=== PATIENT | female | born 1955 | race Caucasian/White ===

== ENCOUNTER 2017-07-13 17:06 | Inpatient (IN) | payer MEDICARE, MEDICAID ==
[~2017-07-13] VITALS: Ht 154.9 cm; Wt 106.2 kg
[~2017-07-13 17:06] MED LIST: ASPI-496 PO; ATOR40TA78 PO; GLIM1TAB2 PO; ISOS40TA11 PO; LOSA100T2 PO; METF500T9 PO; METO25TA2 PO; NIFE10CA2 PO; NITR0.4T28 SL; OXYC10TA6 PO; PRO AIR INH
[2017-07-13 18:34] VITALS: BP 137/90
[2017-07-13] MEDS ORDERED: BACITRACIN 50,000 UNIT ONE (20:35)
[2017-07-13] MEDS ORDERED: BUPIVACAINE/PF 0.5% ONE (20:36)
[2017-07-13] MEDS ORDERED: FENTANYL PF 500 MCG/10ML ONE (20:40)
[2017-07-13] MEDS ORDERED: ROCURONIUM 10 MG/ML ONE (20:43)
[2017-07-13] MEDS ORDERED: LABETALOL 5MG/ML, 20ML ONE (20:43)
[2017-07-13] MEDS ORDERED: METOPROLOL 1 MG/ML, 5ML ONE (20:43)
[2017-07-13] MEDS ORDERED: PROPOFOL 10 MG/ML, 20ML ONE (20:43)
[2017-07-13] MEDS ORDERED: SUCCINYLCHOLINE 20 MG/ML, 10ML ONE (20:43)
[2017-07-13] MEDS ORDERED: MIDAZOLAM 1 MG/ML, 2ML IV PRN (21:00)
[2017-07-13] MEDS ORDERED: PROMETHAZINE 25 MG/ML, 1ML IV PRN (21:00)
[2017-07-13] MEDS ORDERED: METOCLOPRAMIDE 5 MG/ML, 2ML IV PRN (21:00)
[2017-07-13] MEDS ORDERED: hydrALAzine 20 MG/ML, 1ML IV PRN (21:00)
[2017-07-13] MEDS ORDERED: MEPERIDINE/PF 25MG/0.5ML IVPush PRN (21:00)
[2017-07-13] MEDS ORDERED: LABETALOL 5MG/ML, 20ML IV PRN (21:00)
[2017-07-13] MEDS ORDERED: OXYcodone 5 MG/5 ML ORAL.SOL UDC PO PRN (21:00)
[2017-07-13] MEDS ORDERED: FENTANYL PF 100 MCG/2ML IV PRN (21:00)
[2017-07-13] MEDS ORDERED: VANCOMYCIN 1,000 MG ONE (21:02)
[2017-07-13] MEDS ORDERED: TRANEXAMIC ACID 100 MG/ML, 10ML ONE (21:07)
[2017-07-13] MEDS ORDERED: BUPIVACAINE/PF 0.5% INJ ONE (21:10)
[2017-07-13] MEDS ORDERED: VANCOMYCIN 1,000 MG IM ONE (21:10)
[2017-07-13] MEDS ORDERED: BACITRACIN 50,000 UNIT IRRIG ONE (21:10)
[2017-07-13] MEDS ORDERED: HYDROmorphone 1 MG/ML, 1ML ONE ×2 (21:15→21:49)
[2017-07-13] MEDS: HYDROmorphone 1 MG/ML, 1ML IV PRN ×5 (21:45→22:27)
[2017-07-13] MEDS ORDERED: FENTANYL PF 100 MCG/2ML ONE (22:02)
[2017-07-13] MEDS ORDERED: HYDROmorphone 2 MG/ML, 1ML ONE (22:02)
[2017-07-13] MEDS: GLIMEPIRIDE 1 MG TABLET PO SCH (22:44)
[2017-07-13] MEDS ORDERED: NITROGLYCERIN 0.4 MG BOTTLE (25 TABS) SL PRN (23:00)
[2017-07-13] MEDS ORDERED: ALBUTEROL SULFATE 2.5 MG/3 ML NPPB PRN (23:00)
[2017-07-13] MEDS ORDERED: PHARMACY MAY ADJ FOR RENAL FX MC PRN (23:30)
[2017-07-13] MEDS ORDERED: ONDANSETRON 2MG/ML, 2ML IV PRN (23:45)
[2017-07-13] MEDS ORDERED: PROMETHAZINE 25 MG/ML, 1ML IM PRN (23:45)
[2017-07-13] MEDS ORDERED: BISACODYL 10 MG SUPP PR PRN (23:45)
[2017-07-13] MEDS ORDERED: OXYcodone/APAP 5/325MG TABLET PO PRN (23:45)
[2017-07-13] MEDS ORDERED: MAGNESIUM HYDROXIDE 8%, 30ML UDC PO PRN (23:45)
[2017-07-14] MEDS: ISOSORBIDE DINITRATE 30 MG TABLET PO SCH ×3 (00:09→19:54)
[2017-07-14] MEDS: CEFAZOLIN PMX 1GM/50ML 50 ML IVPB SCH ×3 (00:40→17:28)
[2017-07-14] MEDS: METOPROLOL SUCCINATE 25 MG TAB.ER.24H PO SCH ×3 (00:41→20:00)
[2017-07-14] MEDS: HYDROmorphone 1 MG/ML, 1ML IVPush PRN ×2 (00:41→06:02)
[2017-07-14 01:45] VITALS: BP 114/64
[2017-07-14] MEDS: ASPIRIN 81 MG TABLET EC PO SCH (06:04)
[2017-07-14 08:23] VITALS: BP 129/72
[2017-07-14] MEDS: ATORVASTATIN 80 MG TABLET PO SCH ×2 (09:00→20:00)
[2017-07-14] MEDS: LOSARTAN 50MG TABLET PO SCH (09:06)
[2017-07-14] MEDS: niFEDipine ER 60 MG TABLET.ER PO SCH (09:06)
[2017-07-14] MEDS: SENNA/DOCUSATE TABLET PO SCH ×2 (09:06→09:07)
[2017-07-14] MEDS: metFORMIN XR 500 MG TAB.ER.24H PO SCH ×2 (09:09→17:28)
[2017-07-14] MEDS: GLIMEPIRIDE 1 MG TABLET PO SCH ×2 (09:09→17:28)
[2017-07-14] MEDS ORDERED: OXYcodone IR 5MG TABLET PO PRN ×2 (10:30)
[2017-07-14] MEDS ORDERED: HYDROmorphone 1 MG/ML, 1ML IVPush PRN (10:30)
[2017-07-14 14:58] VITALS: BP 121/67
[2017-07-14] MEDS: OXYcodone IR 5MG TABLET PO PRN ×2 (17:29→17:51)
[2017-07-14] MEDS ORDERED: HYDROmorphone 2MG TABLET PO PRN (19:30)
[2017-07-14 19:39] VITALS: BP 108/63
[2017-07-15] MEDS: OXYcodone IR 5MG TABLET PO PRN ×4 (00:04→19:49)
[2017-07-15] MEDS: CEFAZOLIN PMX 1GM/50ML 50 ML IVPB SCH ×3 (01:29→17:42)
[2017-07-15 01:49] VITALS: BP 101/67
[2017-07-15] MEDS: ASPIRIN 81 MG TABLET EC PO SCH (06:38)
[2017-07-15 07:19] VITALS: BP 108/72
[2017-07-15] MEDS: metFORMIN XR 500 MG TAB.ER.24H PO SCH ×2 (08:09→17:42)
[2017-07-15] MEDS: GLIMEPIRIDE 1 MG TABLET PO SCH ×2 (08:09→17:43)
[2017-07-15] MEDS: ISOSORBIDE DINITRATE 30 MG TABLET PO SCH ×3 (08:10→21:19)
[2017-07-15] MEDS: LOSARTAN 50MG TABLET PO SCH (08:11)
[2017-07-15] MEDS: niFEDipine ER 60 MG TABLET.ER PO SCH (08:12)
[2017-07-15] MEDS: METOPROLOL SUCCINATE 25 MG TAB.ER.24H PO SCH ×3 (08:12→21:19)
[2017-07-15 13:15] VITALS: BP 127/78
[2017-07-15] MEDS ORDERED: CEFAZOLIN 1,000 MG IM SCH (18:00)
[2017-07-15 18:35] VITALS: BP 109/60
[2017-07-15] MEDS ORDERED: CEFAZOLIN PMX 2GM/50ML 50 ML IVPB SCH (19:00)
[2017-07-15 19:01] VITALS: BP 101/60
[2017-07-15] MEDS: LINEZOLID PMX 600MG/300ML 300 ML IV SCH (19:37)
[2017-07-15] MEDS: ATORVASTATIN 80 MG TABLET PO SCH (19:42)
[2017-07-15 21:00] VITALS: BP 137/73
[2017-07-16] MEDS: OXYcodone IR 5MG TABLET PO PRN (01:51)
[2017-07-16] MEDS: CEFAZOLIN PMX 2GM/50ML 50 ML IVPB SCH ×2 (01:51→12:12)
[2017-07-16 01:59] VITALS: BP 135/81
[2017-07-16] MEDS ORDERED: CEFAZOLIN 1,000 MG IV SCH (02:00)
[2017-07-16] MEDS: ASPIRIN 81 MG TABLET EC PO SCH (05:38)
[2017-07-16 06:03] LABS: HEMATOCRIT 31.1 % (34.6-47.8); HEMOGLOBIN 10.3 g/dL (11.7-16.4)
[2017-07-16 06:15] LABS: BLOOD UREA NITROGEN 12 mg/dL (7-18)
[2017-07-16 06:22] LABS: ASPARTATE AMINO TRANSFERASE 8 U/L (15-37)
[2017-07-16 08:00] VITALS: BP 136/80
[2017-07-16] MEDS: LINEZOLID PMX 600MG/300ML 300 ML IV SCH (08:03)
[2017-07-16] MEDS: niFEDipine ER 60 MG TABLET.ER PO SCH (08:27)
[2017-07-16] MEDS: ISOSORBIDE DINITRATE 30 MG TABLET PO SCH (08:27)
[2017-07-16] MEDS: LOSARTAN 50MG TABLET PO SCH (08:27)
[2017-07-16] MEDS: GLIMEPIRIDE 1 MG TABLET PO SCH ×2 (08:28→18:50)
[2017-07-16] MEDS: metFORMIN XR 500 MG TAB.ER.24H PO SCH ×2 (08:28→17:00)
[2017-07-16] MEDS: METOPROLOL SUCCINATE 25 MG TAB.ER.24H PO SCH (08:28)
[2017-07-16] MEDS: SENNA/DOCUSATE TABLET PO SCH (08:29)
[2017-07-16 13:51] VITALS: BP 116/77
[2017-07-16] MEDS ORDERED: LINE600T37 PO (17:11)
== END 2017-07-16 18:50 | disposition home or self-care (01) | DRG 856 ==
LOC: OR 17:06 → 4NOR 17:21 → OR 23:21
PROVIDERS: ADMIT Orthopaedic Surgery Orthopaedic Surgery of the Spine; ATTEND Orthopaedic Surgery Orthopaedic Surgery of the Spine
PROC: 0JB70ZZ Excision of Back Subcutaneous Tissue and Fascia, Open Approach (ICD-10-PCS; principal; 2017-07-13 19:30)
DX: T81.4XXA Infection following a procedure, initial encounter (principal); E43 Unspecified severe protein-calorie malnutrition; Z68.41 Body mass index [BMI] 40.0-44.9, adult; E11.65 Type 2 diabetes mellitus with hyperglycemia; I10 Essential (primary) hypertension; E78.5 Hyperlipidemia, unspecified; B95.62 Methicillin resistant Staphylococcus aureus infection as the cause of diseases classified elsewhere; Y83.8 Other surgical procedures as the cause of abnormal reaction of the patient, or of later complication, without mention of misadventure at the time of the procedure; I25.10 Atherosclerotic heart disease of native coronary artery without angina pectoris; I25.2 Old myocardial infarction; Z82.0 Family history of epilepsy and other diseases of the nervous system; Z82.49 Family history of ischemic heart disease and other diseases of the circulatory system; Z90.49 Acquired absence of other specified parts of digestive tract; Z90.710 Acquired absence of both cervix and uterus; Z88.0 Allergy status to penicillin; Z88.5 Allergy status to narcotic agent; Z71.89 Other specified counseling; Y92.89 Other specified places as the place of occurrence of the external cause
CPT/HCPCS: 36415; 80053; 82962; 84132; 85025; 85651; 86140; 87070; 87075; 87077; 87147; 87176; 87186; 87205; J0690; J1170; J2020; J2704; J3010; J3370; J3490; J0330